=== PATIENT | female | born 1965 | race Caucasian/White ===

== ENCOUNTER 2016-03-19 06:25 | Day surgery (SDC) | payer BC ==
[~2016-03-19 06:25] MED LIST: FENTANYL 250 MCG/5 ML AMP IV PRN; LIDOCAINE Viscous 2% 15 ML UDCUP PO PRN; MIDAZOLAM HCL 5 MG/5 ML VIAL IV PRN
[2016-03-19] MEDS ORDERED: LACTATED RINGERS 1,000 ML IV SCH (06:30)
[2016-03-19] MEDS ORDERED: LACTATED RINGERS 0 ML ONE (06:41)
[2016-03-19] MEDS ORDERED: IV START KIT ONE (06:41)
[2016-03-19] MEDS ORDERED: LIDOCAINE Viscous 2% 15 ML UDCUP ONE ×2 (06:49→07:52)
[2016-03-19] MEDS ORDERED: FENTANYL 100 MCG/2 ML VIAL ONE ×2 (06:49→06:57)
[2016-03-19] MEDS ORDERED: MIDAZOLAM HCL 5 MG/5 ML VIAL ONE (06:49)
[2016-03-19] MEDS ORDERED: SODIUM CHLORIDE 0.9% 1,000 ML IV SCH (07:15)
[2016-03-19] MEDS ORDERED: PROPOFOL 20 ML IV ONE (07:51)
[2016-03-19] MEDS ORDERED: FAMOTIDINE 20 MG TABLET ONE (08:24)
[2016-03-19 12:32] LABS: HELICOBACTER PYLORII DETECTION NEGATIVE (NEGATIVE)
--- NOTE | 2016-03-23 12:25 | SURGPATH ---
[facility] [address] [place] [id number] Patient Name: MAURICIO BOX MR#: [id number] : 1965 Gender: F Specimen #: [id number] Collected: 03/19/2016 Received: 03/22/2016 Reported: 03/23/2016 Submitting Phys: ENRICO CLARK Copy To Phys: [facility]CILLA Clinical History / Pre-Operative Diagnosis: Dysphagia, heartburn, nausea, rule out; Giardia, celiac sprue, gastritis Specimen Source / Surgical Procedure Performed: #1 duodenal biopsy, #2 antral biopsy Interpretation: 1. DUODENUM, BIOPSY: - NO DIAGNOSTIC ABNORMALITIES 2. STOMACH, ANTRUM, BIOPSY: - NO DIAGNOSTIC ABNORMALITIES Electronically Signed Out Sherry Walters M.D. Gross Description: 1. The specimen is received in formalin labeled with the patient's name and "duodenum". The specimen consists of two fragments of rausch soft tissue each is 0.2-0.3 cm in greatest dimension. Submitted in toto in one cassette 2. The specimen is received in formalin labeled with the patient's name and "antrum". The specimen consists of two fragments of rausch soft tissue each is 0.1-0.3 cm in greatest dimension. Submitted in toto in one cassette GWENDOLYN Carrillo Microscopic Description: Part 1: Sections show duodenal mucosa with overall intact architecture with a villous to crypt ratio of three to one. No increased intraepithelial lymphocytes, gastric metaplasia, active duodenitis, or evidence of Giardia are seen on routine stain. No malignancy is seen. Part 2: Sections show gastric antral mucosa with overall intact architecture. No significant active or chronic inflammation is seen. No Helicobacter organisms are seen on routine stain. No dysplasia or malignancy is seen. 1: [id number] 2: 17789 R13.10 R11.2
== END 2016-03-19 09:36 | disposition home or self-care (01) ==
LOC: SDC 06:25
PROVIDERS: ATTEND Internal Medicine Gastroenterology
PROC: 0DB98ZX Excision of Duodenum, Via Natural or Artificial Opening Endoscopic, Diagnostic (ICD-10-PCS; principal; 2016-03-19)
PROC: 0DB68ZX Excision of Stomach, Via Natural or Artificial Opening Endoscopic, Diagnostic (ICD-10-PCS; 2016-03-19)
DX: K29.70 Gastritis, unspecified, without bleeding (principal); K29.80 Duodenitis without bleeding; E11.9 Type 2 diabetes mellitus without complications; I10 Essential (primary) hypertension; M79.1 Myalgia; Z88.1 Allergy status to other antibiotic agents; Z79.84 Long term (current) use of oral hypoglycemic drugs; Z79.4 Long term (current) use of insulin; F17.210 Nicotine dependence, cigarettes, uncomplicated
CPT/HCPCS: 87081; 43239; J3010 ×2; A9270 ×3; J2250; J7030

== ENCOUNTER 2016-06-23 15:21 | Emergency (ER) | payer BC ==
[2016-06-23 16:17] LABS: ABSOLUTE NEUTROPHIL COUNT 10.7 K/mm3 (1.8-7.7); BASO % 0.2 % (0.2-1.0); EOS # 0.1 (0.0-0.5); EOS % 0.3 % (0.9-2.9); HEMATOCRIT 41.3 % (37.0-47.0); HEMOGLOBIN 13.8 gm/l (12.0-16.0); IMM NEUT # 0.1 K/mm3 (0-0.2); IMM NEUT% 0.4 % (0-1); LYMPH # 4.7 (1.0-4.8); LYMPH % 28.6 % (15-45); MEAN CELL VOLUME 82.1 fl (81.0-99.0); MEAN CORPUSCULAR HEMOGLOBIN 27.4 pg (27.0-31.0); MEAN CORPUSCULAR HGB CONC 33.4 g/dl (33.0-37.0); MONO # 0.9 (0.0-0.8); MONO % 5.2 % (4-12); NEUT % 65.3 % (43-75); PLATELET COUNT 347 K/mm3 (130-400); RED CELL DISTRIBUTION WIDTH 12.6 % (11.5-14.5); SPECIFIC GRAVITY 1.025 (1.001-1.030); URINE BILIRUBIN NEGATIVE (NEGATIVE); URINE BLOOD NEGATIVE (NEGATIVE); URINE GLUCOSE (UA) NEGATIVE (NEGATIVE); URINE LEUKOCYTE ESTERASE NEGATIVE (NEGATIVE); URINE NITRITE NEGATIVE (NEGATIVE); URINE PROTEIN NEGATIVE (NEGATIVE); URINE UROBILINOGEN NORMAL (0-1 mg/dl)
[2016-06-23 16:19] LABS: URINE APPEARANCE CLEAR; URINE COLOR YELLOW
[2016-06-23] MEDS ORDERED: PROCHLORPERAZINE 5 MG/ML 2 ML VIAL ONE (16:37)
[2016-06-23] MEDS ORDERED: MORPHINE SULFATE 4 MG/ML SYRINGE ONE (16:37)
[2016-06-23 16:55] LABS: ALB/GLOB RATIO 1.4 (>1.0); ALBUMIN 4.5 gm/dL (3.5-5.7); CALCIUM 9.9 mg/dL (8.6-10.3)
[2016-06-23] MEDS: IOPAMIDOL 370 (76%) 100 ML VIAL IV ONE (17:19)
--- NOTE | 2016-06-23 17:38 | CT ---
Exam Type: ABD/PELVIS W/ CON Date and Time: 06/23/2016 3:52 PM Clinical information: Right lower quadrant pain Comparison: CT abdomen pelvis 05/08/2014 Technique: Contiguous axial 4 mm images were obtained from the lung bases through the pelvis after the uneventful IV administration of 100 cc of Isovue-300. Sagittal and coronal reformations with high resolution lung algorithm images were also obtained at this time. CT DI: 17.3 DLP 871.5 FINDINGS: Lung base : Dependent and atelectatic changes note the lung bases. Visualized heart:There is no pericardial effusion. LIVER: Mild diffuse fatty infiltration to the liver without focal lesion. BILE DUCTS: normal caliber. GALLBLADDER: No calcified gallstones. Normal caliber wall. PANCREAS: within normal limits. SPLEEN: within normal limits. ADRENALS: within normal limits. KIDNEYS: Complex cyst is again noted along the right upper pole medially. Cortical scarring with calcification is present along the left mid body. Stomach and small BOWEL: Normal caliber. Large bowel: Air and stool are noted within the large bowel. Multiple phleboliths are identified within the appendix. No evidence of periappendicular fat stranding is present. There is some probable thickening of the distal sigmoid colon likely relating to diverticulitis. There is some minimal pericolonic fat stranding. No abscess or free air. LYMPH NODES: No enlarged mesenteric lymph nodes. PERITONEUM: no ascites or free air, no fluid collection. VESSELS: within normal limits RETROPERITONEUM: within normal limits. ABDOMINAL WALL: within normal limits. Bladder: Normal Uterus and adnexa: Surgically absent. BONES: within normal limits. IMPRESSION: Mild area of diverticulitis is suspected within the sigmoid colon. Exam is otherwise unremarkable. No abscess or free air. Incidental findings as above. Findings were called to Dr. Grimm at approximately 1734 hours on 06/23/2016.
[2016-06-23] MEDS ORDERED: CEFTRIAXONE 1 GRAM DUPLEX 50 ML IV ONE (17:55)
[2016-06-23] MEDS ORDERED: METRONIDAZOLE 500 MG/NS 100 ML 100 ML IV ONE (18:13)
[2016-06-24 15:35] LABS: CHLAMYDIA BD Negative (Negative); N.GONORRHOEAE BD Negative (Negative); SOURCE Urine (())
== END 2016-06-23 19:06 | disposition home or self-care (01) ==
LOC: ED 15:21
DX: K57.92 Diverticulitis of intestine, part unspecified, without perforation or abscess without bleeding (principal); R11.0 Nausea; I10 Essential (primary) hypertension; K21.9 Gastro-esophageal reflux disease without esophagitis; E11.9 Type 2 diabetes mellitus without complications; Z79.84 Long term (current) use of oral hypoglycemic drugs
CPT/HCPCS: 83690; 87491; 87591; 85025; 80053; 81003; 74177; 96375 ×2; 99284 ×2; 96361; 96365; 96367; J0780; J2270; Q9967; J0696